=== PATIENT | female | born 1965 | race Caucasian/White ===

== ENCOUNTER 2023-04-13 15:01 | Outpatient (OUT) | payer OTHER, SELFPAY ==
--- NOTE | 2023-04-13 15:59 | CA_ITS ---
Patient: WES REICH Exam Date: 04/13/2023 : 1965 Gender:F Ordering : ERIC TORRES Admission #: [id number] Family : Order #: [id number] CLICK HERE TO VIEW EXAM ECHOCARDIOGRAM REPORT PROCEDURE: CA ECHO DOPPLER COMPLETE INDICATIONS: Acute on chronic systolic heart failure COMPARISON: None. DESCRIPTION: COMPLETE ECHOCARDIOGRAM Real-time transthoracic echocardiography with 2D, M-mode, spectral and color flow Doppler performed. QUALITY: Technical quality was adequate. LEFT VENTRICLE: Normal chamber size. Mild concentric left ventricular hypertrophy. LV EF: Global left ventricular systolic function is normal. Visual estimation of left ventricular ejection fraction is 60% DIASTOLIC: Normal diastolic function. ATRIAL SEPTUM: Inadequately seen. LEFT ATRIUM: Normal chamber size. RIGHT ATRIUM: Normal chamber size. RIGHT VENTRICLE: Normal chamber size. Normal right ventricular systolic function. TRICUSPID VALVE: Normal mobility and thickness. No stenosis with trivial regurgitation. No evidence of pulmonary hypertension. RVSP 23mmHg MITRAL VALVE: Normal mobility and thickness. No evidence of mitral valve stenosis. Mild mitral annular calcification. No mitral regurgitation. AORTIC VALVE: Normal trileaflet appearance. Thickened aortic valve. Mildly diminished mobility. Doppler velocity suggests mild aortic valve stenosis. DVI 0.5, PELON 1.5cm2. Mild aortic regurgitation. AORTIC ROOT: Normal diameter and appearance. PULMONIC VALVE: Normal thickness and mobility. No stenosis. Trivial regurgitation. PERICARDIUM: Anterior free space; trivial effusion versus fat pad. IVC: Collapses with inspirations. Normal size. CONCLUSION: Global left ventricular systolic function is normal; visually estimated ejection fraction is 60 to 65%. Mild left ventricular hypertrophy. Normal diastolic function. The right ventricle is normal in size and systolic function. Mild aortic valve stenosis. Mild aortic regurgitation. Anterior free space; trivial effusion versus fat pad. Adult Echocardiography Procedure Report Left Ventricle LVEDD (3.7 - 5.6 cm): 3.97 cm LVESD (2.2 - 4.0 cm): 2.81 cm LVIVS thickness (0.6 - 1.2 cm): 1.11 cm LVPW thickness (0.5 - 1.0 cm): 1.23 cm e': 0.09 m/s E - e': 7.53 LVOT Max Gradient: 2.64 mm[Hg] LVOT Area (cm2): 0.81 m/s Peak Velocity (LVOT): 0.81 m/s Mean Velocity (LVOT): 0.51 m/s LVOT Diameter 1.92 cm Left Ventricular Ejection Fraction: 65.46 % Left Atrium LA Volume Index (2D A2C): 35.99 ml/m2 Left Atrium Systolic Dimension: 3.05 cm Mitral Valve MV E to A Ratio: 0.76 Mitral Valve A-Wave Peak Velocity: 0.85 m/s Mitral Valve E-Wave Peak Velocity: 0.64 m/s Right Ventricle RV Internal Diastolic Dimension: 3.15 cm Aorta AO Root Diam: 3.10 cm Ascending Ao Diam: 3.52 cm Aortic Valve AoV Area (Peak John): 1.49 cm2, 1.49 cm2 AoV Area (VTI): 1.61 cm2, 1.61 cm2 Deceleration [place]: 0.86 m/s2 Pressure Half-Time: 865.10 ms Peak Velocity(Antegrade Flow): 1.58 m/s Peak Gradient(Antegrade Flow): 9.98 mm[Hg] Mean Velocity(Antegrade Flow): 0.97 m/s Mean Gradient(Antegrade Flow): 4.55 mm[Hg] Velocity Time Integral: 34.30 cm Tricuspid Valve Peak Velocity (Regurgitant Flow): 1.63 m/s, 2.21 m/s Pulmonic Valve Mean Gradient: 1.32 mm[Hg], 1.22 mm[Hg] Mean Velocity: 0.54 m/s, 0.52 m/s Peak Velocity: 0.73 m/s Peak Gradient: 2.35 mm[Hg], 1.97 mm[Hg] Right Atrium Right Atrium Systolic Pressure: 32.03 ml, 32.03 ml Dictated by: Jesse Freed M.D. on 04/14/2023 at 15:37 Approved by: Jesse Freed M.D. on 04/14/2023 at 15:41
== END 2023-04-13 15:02 | disposition home or self-care (01) ==
PROVIDERS: PCP Family Medicine; Visit Provider Internal Medicine Cardiovascular Disease
DX: I50.23 Acute on chronic systolic (congestive) heart failure (principal); I35.0 Nonrheumatic aortic (valve) stenosis
CPT/HCPCS: 93306

== ENCOUNTER 2023-05-19 16:35 | Outpatient (OUT) | payer OTHER, SELFPAY ==
[2023-05-19 17:02] LABS: Anion Gap 9.8; BUN Creatinine Ratio 9.5; Calcium 9.3 mg/dL (8.5-10.1); Chloride 102 mmol/L (98-107); Estimated GFR (African America 58 (>=60); Estimated GFR (Non-African Ame 48 (>=60); Glucose 114 mg/dL (74-106); Potassium 3.8 mmol/L (3.5-5.1); Sodium 140 mmol/L (136-145)
== END 2023-05-19 16:36 | disposition home or self-care (01) ==
LOC: LAB 16:36
PROVIDERS: PCP Family Medicine; Visit Provider Internal Medicine Cardiovascular Disease
DX: I10 Essential (primary) hypertension (principal)
CPT/HCPCS: 36415; 80048

== ENCOUNTER 2024-06-14 14:48 | Outpatient (OUT) | payer OTHER, SELFPAY ==
--- NOTE | 2024-06-14 15:00 | CA_ITS ---
Patient Name: WES REICH MR#: [id number] : 1965 Exam Date: 06/14/2024 Ordering Doctor: ERIC TORRES M.D. ECHOCARDIOGRAM REPORT PROCEDURE: CA ECHO DOPPLER COMPLETE INDICATIONS: Cardiomyopathy, smoker, hypertension COMPARISON: None. DESCRIPTION: COMPLETE ECHOCARDIOGRAM Real-time transthoracic echocardiography with 2D, M-mode, spectral and color flow Doppler performed. QUALITY: Technical quality was good. LEFT VENTRICLE: Normal chamber size. Moderate concentric left ventricular hypertrophy. Normal systolic function. LV EF: Normal left ventricular ejection fraction, (>55%). DIASTOLIC: Unable to assess diastolic function. ATRIAL SEPTUM: Visually appears intact. LEFT ATRIUM: Normal chamber size. RIGHT ATRIUM: Normal chamber size. RIGHT VENTRICLE: Normal chamber size. Normal right ventricular systolic function. TRICUSPID VALVE: Normal mobility and thickness. No stenosis with no regurgitation. Right-sided pressures cannot be calculated due to lack of measurable tricuspid regurgitation. MITRAL VALVE: Mildly thickened with normal mobility. No evidence of mitral valve stenosis. Mild mitral annular calcification. No mitral regurgitation. AORTIC VALVE: Normal trileaflet appearance. No visible sclerosis. Normal leaflet mobility. No aortic valve stenosis. Mild to moderate aortic regurgitation. AORTIC ROOT: Normal diameter and appearance. Ascending aorta is normal in size. PULMONIC VALVE: Normal thickness and mobility. No stenosis. Trivial regurgitation. PERICARDIUM: No evidence of pericardial effusion. IVC: Collapses with inspirations. IVC is normal in size. PLEURA: CONCLUSION: 1. Moderate concentric left ventricular hypertrophy with normal systolic function. LVEF is estimated at 65 to 70%. 2. Normal right ventricular size and systolic function. 3. Mild to moderate aortic regurgitation. 4. Unable to assess right-sided pressures due to lack of measurable tricuspid regurgitation. Adult Echocardiography Procedure Report Left Ventricle LVEDD (3.7 - 5.6 cm): 3.26 cm LVESD (2.2 - 4.0 cm): 2.04 cm LVIVS thickness (0.6 - 1.2 cm): 1.59 cm LVPW thickness (0.5 - 1.0 cm): 1.36 cm e': 0.08 m/s E - e': 6.94 LVOT Max Gradient: 2.28 mm[Hg] LVOT Area (cm2): 0.76 m/s Peak Velocity (LVOT): 0.76 m/s Mean Velocity (LVOT): 0.55 m/s LVOT Diameter 1.87 cm Left Atrium LA Volume Index (2D A2C): 18.69 ml/m2 Left Atrium Systolic Dimension: 3.48 cm Mitral Valve MV E to A Ratio: 0.72 Mitral Valve A-Wave Peak Velocity: 0.80 m/s Mitral Valve E-Wave Peak Velocity: 0.57 m/s Right Ventricle Aorta AO Root Diam: 3.44 cm Ascending Ao Diam: 3.55 cm Aortic Valve AoV Area (Peak John): 1.42 cm2, 1.42 cm2 AoV Area (VTI): 1.78 cm2, 1.78 cm2 Deceleration [place]: 2.42 m/s2 Pressure Half-Time: 533.30 ms Peak Velocity(Antegrade Flow): 1.47 m/s Peak Gradient(Antegrade Flow): 8.60 mm[Hg] Mean Velocity(Antegrade Flow): 0.92 m/s Mean Gradient(Antegrade Flow): 3.88 mm[Hg] Velocity Time Integral: 29.73 cm Tricuspid Valve Pulmonic Valve Mean Gradient: 1.28 mm[Hg] Mean Velocity: 0.53 m/s Peak Velocity: 0.80 m/s, 0.79 m/s Peak Gradient: 2.49 mm[Hg], 2.58 mm[Hg] Right Atrium Right Atrium Systolic Pressure: 34.87 ml, 34.87 ml Dictated by: Serafin Browning M.D. on 06/14/2024 at 18:38 Approved by: Serafin Browning M.D. on 06/14/2024 at 18:43
== END 2024-06-14 14:49 | disposition home or self-care (01) ==
LOC: CARD 14:48
PROVIDERS: PCP Family Medicine; Visit Provider Internal Medicine Cardiovascular Disease
DX: I42.9 Cardiomyopathy, unspecified (principal)
CPT/HCPCS: 93306